=== PATIENT | female | born 1990 | race Caucasian/White ===

== ENCOUNTER 2024-01-14 12:50 | Outpatient (CLI) | payer OTHER, SELFPAY ==
--- NOTE | 2024-01-14 13:00 | CRLHL7_ITS ---
For Patients: As a result of the Cures Act, medical imaging exams and procedure reports are released immediately into your electronic medical record. You may view this report before your referring provider. If you have questions, please contact your health care provider. INDICATION: First trimester scan, establish dates. COMPARISON: None. TECHNIQUE: Real-time vivas-scale imaging of the pelvis was performed. FINDINGS: Sonographic imaging demonstrates a single living intrauterine gestation. The embryo demonstrates a regular cardiac rate measuring 176 beats per minute. The embryo`s crown-rump length measurement of 1.9 cm corresponds to a gestational age of 8 weeks 3 days with a sonographic due date of 08/22/2024. There is a normal-appearing yolk sac. There are no gross abnormalities noted within the embryo at this early state of development. The gestational sac has a normal appearance. There is no evidence of a perigestational hemorrhage. The amount of fluid within the sac appears appropriate for gestational age. The cervix is closed. The myometrium appears normal. The ovaries are of normal size. Corpus luteal cyst right ovary. There are no suspicious fluid collections noted in the cul-de-sac. IMPRESSION: Normal first trimester OB ultrasound exam. Gestational age calculated at 8 weeks 3 days with a sonographic due date of 08/22/2024. Dictated by Lenin Newton MD @ 01/14/2024 4:16:28 PM (Electronically Signed)
== END 2024-01-14 12:51 | disposition home or self-care (01) ==
LOC: US 12:50
PROVIDERS: Visit Provider Physician Assistant
DX: Z34.91 Encounter for supervision of normal pregnancy, unspecified, first trimester (principal); Z3A.08 8 weeks gestation of pregnancy
CPT/HCPCS: 76817; 86592; 86703; 86704; 86706; 86762; 86787; 86803; 86850; 86900; 86901; 87086; 87340; 87491; 87591

== ENCOUNTER 2024-04-05 12:04 | Outpatient (CLI) | payer OTHER, SELFPAY ==
--- NOTE | 2024-04-05 12:15 | CRLHL7_ITS ---
For Patients: As a result of the Century Cures Act, medical imaging exams and procedure reports are released immediately into your electronic medical record. You may view this report before your referring provider. If you have questions, please contact your health care provider. INDICATION: Evaluate anatomy. COMPARISON: 02/16/2024 TECHNIQUE: Real time vivas scale imaging of the fetus was performed as well as color Doppler analysis of the umbilical vessels. FINDINGS: Sonographic imaging demonstrates a single living intrauterine gestation. Fetus demonstrates a regular cardiac rate of 163 beats per minute. Fetus has a breech position. The placenta lies anteriorly without evidence of placenta previa. Edge of the placenta is located 2.2 cm from the internal cervical os, confirmed with transvaginal imaging. Amniotic fluid volume appears normal. Single deepest vertical pocket: 2.9 cm. The cervix is closed and measures 4.1 cm in length. The composite ultrasound gestational age is calculated at 20 weeks 0 days with an estimated sonographic due date of 08/23/2024. The estimated weight is 319 grams which lies at the 56th %. The following biometric measurements were obtained: Biparietal diameter: 4.5 cm/19 weeks 4 days 45th% Head circumference: 17.4 cm/20 weeks 0 days 54th% Abdominal circumference: 14.9 cm/20 weeks 1 day 61st% Femur length: 3.1 cm/19 weeks 4 days 36th% The HC/AC ratio measures: 1.17 range (1.08-1.25) On anatomic survey, there is a normal appearance of the cerebral ventricles, cavum septi pellucidi, cisterna magna and cerebellum. The nose, lips, and facial profile appear normal. The cervical, thoracic and lumbar spine are well visualized and appear normal. There is a normal four-chamber heart view and the left and right ventricular outflow tracts appear normal. The diaphragm and stomach appear normal. The kidneys and bladder also appear normal. There is a normal three-vessel cord and cord insertion site. The four extremities appear normal. IMPRESSION: Normal OB ultrasound exam with concordance of clinical and sonographic dating. No intrinsic abnormalities noted on anatomic survey. Dictated by Lenin Newton MD @ 04/06/2024 12:21:41 PM (Electronically Signed)
== END 2024-04-05 12:05 | disposition home or self-care (01) ==
LOC: US 12:04
PROVIDERS: Visit Provider Advanced Practice Midwife
DX: Z34.92 Encounter for supervision of normal pregnancy, unspecified, second trimester (principal); Z3A.20 20 weeks gestation of pregnancy
CPT/HCPCS: 76805

== ENCOUNTER 2024-05-31 11:00 | Outpatient (CLI) | payer OTHER, SELFPAY | END 2024-05-31 11:01 | disposition home or self-care (01) | LOC: NFLDREF 06-03 03:50 | PROVIDERS: PCP Nurse Practitioner Family; Visit Provider Advanced Practice Midwife | DX: O09.522 Supervision of elderly multigravida, second trimester (principal); Z3A.27 27 weeks gestation of pregnancy | CPT/HCPCS: 86592 ==

== ENCOUNTER 2024-06-21 10:07 | Outpatient (CLI) | payer OTHER, SELFPAY | END 2024-06-21 10:08 | disposition home or self-care (01) | LOC: US 10:07 | PROVIDERS: PCP Nurse Practitioner Family; Visit Provider Advanced Practice Midwife | DX: O44.40 Low lying placenta NOS or without hemorrhage, unspecified trimester (principal) | CPT/HCPCS: 76816 ==

== ENCOUNTER 2024-07-21 18:28 | Outpatient (CLI) | payer OTHER, SELFPAY ==
[2024-07-21] VITALS (15 sets, daily range): BP systolic 128–152; BP diastolic 60–92; PULSE 81–98
[2024-07-21] MEDS: ACETAMINOPHEN 500 MG TABLET 1000 MG PO (20:35)
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
[2024-07-21] MEDS: METOCLOPRAMIDE 10 MG TABLET PO (21:03)
[2024-07-21 21:07] LABS: Alanine Aminotransferase* 16 U/L (4-35); Aspartate Amino Transferase* 33 U/L (12-35); Blood Urea Nitrogen* 5 mg/dL (5-24); Creatinine* 0.4 mg/dL (0.5-1.5); Estimated Glomerular Filt Rate 132 ml/min; Uric Acid* 3.8 mg/dL (2.2-8.4)
[2024-07-21 21:07] LABS: Total Protein Urine 13 mg/dL
[2024-07-21 21:08] LABS: Creatinine Urine 56.2 mg/dL; Protein Creatinine Ratio Urine 0.23 (0-0.19)
[2024-07-21 21:10] LABS: Hematocrit 34.1 % (33.0-51.0); Hemoglobin* 11.1 gm/dL (12.0-16.0); Mean Corpuscular HGB Conc 33 gm/dL (32-36); Mean Corpuscular Hemoglobin 27 pg (26-34); Mean Corpuscular Volume 84 fL (80-100); Platelet Count* 331 K/uL (140-440); Red Blood Count 4.07 m/uL (4.00-5.20); White Blood Count* 12.09 K/uL (4.50-11.00)
[2024-07-21 21:18] LABS: Slide Review Reflex No
[2024-07-21 22:17] LABS: Amnisure Rom* Negative
--- NOTE | 2024-07-21 23:03 | PC.OBNST ---
NST Note NST Note Start: 07/21/24 18:36 Freq: ONCE Status: Active Protocol: Document 07/21/24 23:00 RRP (Rec: 07/21/24 23:01 RRP [id number]) NST Note 4 Para (# of births) 1 EDC [birth year] Gestational Age In Weeks & Days -1530 Weeks & -2 Days High Risk Factors High Blood Pressure - Gestational Patient Presented with Complaint(s) of Nausea and vomiting,Headache Other Complaints dizzy, light headed and thought ROM while here Reactive Yes Appropriate for Gestational Age Yes ANGÉLICA Walker Date 07/21/24 Reactive Yes Appropriate for Gestational Age Yes ANGÉLICA Lafleur CNM Date 07/21/24 OB NST charge Yes Complete NST Note via Write Note Yes The provider's electronic signature indicates the NST is reactive/appropriate for gestational age. *Note to provider: If an addendum is required, open the patient's chart and click on the note under the Nurse/Allied Health tab.
[2024-07-22 10:47] LABS: Fibrinogen* 480 mg/dL (200-450); Partial Thromboplastin Time* 27 Seconds (23-33)
[2024-07-22 10:58] LABS: INR 0.96 (0.91-1.10)
== END 2024-07-21 23:00 | disposition home or self-care (01) ==
LOC: OB OUT 18:29 → OB 18:29
PROVIDERS: PCP Nurse Practitioner Family; Visit Provider Advanced Practice Midwife
DX: O13.3 Gestational [pregnancy-induced] hypertension without significant proteinuria, third trimester (principal); Z3A.35 35 weeks gestation of pregnancy
CPT/HCPCS: 36415; 59025; 82565; 82570; 84112; 84156; 84450; 84460; 84520; 84550; 85027; 85384; 85610; 85730; G0463; A9270

== ENCOUNTER 2024-07-26 13:51 | Outpatient (CLI) | payer OTHER, SELFPAY ==
--- NOTE | 2024-07-26 14:00 | CRLHL7_ITS ---
For Patients: As a result of the Century Cures Act, medical imaging exams and procedure reports are released immediately into your electronic medical record. You may view this report before your referring provider. If you have questions, please contact your health care provider. OBSTETRICAL ULTRASOUND ??? BIOPHYSICAL PROFILE, 07/26/2024 INDICATION: Gestational diabetes mellitus. Biophysical profile and growth. CLINICAL HISTORY: TRACE by LMP: 08/25/2024 Gestational Age: 35 weeks 5 days COMPARISON: 06/21/2024, 04/05/2024 TECHNIQUE: Real-time vivas-scale imaging of the fetus was performed transabdominal. FINDINGS: Fetus: Single Cervix: Not visualized positioning: Vertex Amniotic fluid: 6.2 cm SDP BIOPHYSICAL PROFILE: Gross body movements: 2 tone: 2 Respiratory activity: 2 Amniotic fluid SDP: 2 Total score: 8 Placenta technique: Transabdominal Placenta position: Anterior heart rate: 143 bpm BIOMETRY: BPD: 8.9 cm, 35 weeks 6 days, 59.4% HC: 33.3 cm, 38 weeks 0 days, 73.6% AC: 33.8 cm, 37 weeks 5 days, 95.8% FL: 6.6 cm, 34 weeks 1 day, 11.2% FL/AC Ratio: 19.65% HC/AC ratio: 0.98 EFW: 2998 grams; 6 lbs. 10 oz. age by this ultrasound: 36 weeks 3 days TRACE by this ultrasound: 08/20/2024 Percentile by TRACE: 76.0% IMPRESSION: 1. Sonographic gestational age 36 weeks 3 days and sonographic due date 08/20/2024.. Sonographic age is 5 days ahead of the clinical age. 2. Estimated weight is 76th percentile. Abdominal circumference is 96th percentile. 3. Normal biophysical profile score of 11/25. LENIN SAUNDERS M.D. Diagnostic Radiologist [email or web address] Transcribed: 4:[address]/Dictated by: Lenin Saunders MD @ 07/26/2024 2:54:00 PM (Electronically Signed)
== END 2024-07-26 13:52 | disposition home or self-care (01) ==
LOC: US 13:51
PROVIDERS: PCP Nurse Practitioner Family; Visit Provider Advanced Practice Midwife
DX: O24.419 Gestational diabetes mellitus in pregnancy, unspecified control (principal); Z3A.35 35 weeks gestation of pregnancy
CPT/HCPCS: 76816; 76819

== ENCOUNTER 2024-07-26 15:43 | Outpatient (CLI) | payer OTHER, SELFPAY | END 2024-07-26 15:44 | disposition home or self-care (01) | LOC: NFLDREF 08-01 02:24 | PROVIDERS: PCP Nurse Practitioner Family; Referring Provider Nurse Practitioner Family; Visit Provider Advanced Practice Midwife | DX: Z34.93 Encounter for supervision of normal pregnancy, unspecified, third trimester (principal); Z3A.35 35 weeks gestation of pregnancy | CPT/HCPCS: 87081; 87653 ==

== ENCOUNTER 2024-07-27 09:30 | Outpatient (RCR) | payer OTHER, SELFPAY | END 2024-11-24 23:59 | disposition home or self-care (01) | PROVIDERS: PCP Nurse Practitioner Family; Visit Provider Advanced Practice Midwife | DX: N81.89 Other female genital prolapse (principal); Z51.89 Encounter for other specified aftercare | CPT/HCPCS: 97112; 97140; 97163; 97530; 97535 ==

== ENCOUNTER 2024-07-29 10:05 | Outpatient (CLI) | payer OTHER, SELFPAY | END 2024-07-29 10:06 | disposition home or self-care (01) | LOC: NFLDREF 08-02 01:54 | PROVIDERS: PCP Nurse Practitioner Family; Referring Provider Nurse Practitioner Family; Visit Provider Advanced Practice Midwife | DX: O13.3 Gestational [pregnancy-induced] hypertension without significant proteinuria, third trimester (principal); Z3A.36 36 weeks gestation of pregnancy | CPT/HCPCS: 82565; 82570; 84156; 84450; 84460 ==

== ENCOUNTER 2024-08-02 12:51 | Outpatient (CLI) | payer OTHER, SELFPAY ==
--- NOTE | 2024-08-02 13:00 | CRLHL7_ITS ---
For Patients: As a result of the Cures Act, medical imaging exams and procedure reports are released immediately into your electronic medical record. You may view this report before your referring provider. If you have questions, please contact your health care provider. OB ULTRASOUND TRACE by LMP or US: 08/25/2024. GA: 36 w, 5 d. Single. Comparison: Ultrasound 07/26/2024, 06/21/2024. INDICATION: Gestational hypertension. TECHNIQUE: Real time grayscale imaging of the fetus was performed. Transabdominal. CERVIX: Not visualized. POSITIONING: Vertex. AMNIOTIC FLUID: 7.4 cm. SDP (N: greater than 2 x 1 cm) BIOPHYSICAL PROFILE: 2: Gross body movements 2: tone 2: Respiratory activity 2: Amniotic fluid SDP (N: greater than 2 x 1 cm) 8/8: Total score PLACENTA: Technique: Transabdominal. PLACENTA POSITION: Anterior. DOPPLER: heart rate: 159 bpm. IMPRESSION: Normal biophysical profile score 8/8. Lenin Newton M.D. Diagnostic Radiologist [email or web address] ESA/claudio jsunil/Dictated by: Lenin Newton MD @ 08/02/2024 3:25:00 PM (Electronically Signed)
== END 2024-08-02 12:52 | disposition home or self-care (01) ==
LOC: US 12:51
PROVIDERS: PCP Nurse Practitioner Family; Visit Provider Advanced Practice Midwife
DX: O13.3 Gestational [pregnancy-induced] hypertension without significant proteinuria, third trimester (principal); Z3A.36 36 weeks gestation of pregnancy
CPT/HCPCS: 76819

== ENCOUNTER 2024-08-03 16:08 | Inpatient (IN) | payer OTHER, SELFPAY ==
[2024-08-03] VITALS (8 sets, daily range): BP systolic 131–143; BP diastolic 62–87; PULSE 76–101; RESP 16–18; TEMP 36.6–36.8; O2SAT 99; BMI 27.6
[2024-08-03 17:52] LABS: Basophils Absolute Auto 0.04 K/uL (0.00-0.30); Basophils Percent Auto 0.4 % (0.0-3.0); Eosinophils Absolute Auto 0.07 K/uL (0.00-0.50); Eosinophils Percent Auto 0.7 % (0.0-7.0); Hemoglobin* 11.7 gm/dL (12.0-16.0); Immature Granulocytes Abs Auto 0.04 K/uL (0.00-0.30); Immature Granulocytes Pct Auto 0.4 %; Lymphocytes Absolute Auto 2.11 K/uL (0.90-2.90); Lymphocytes Percent Auto 20.8 % (20-44); Mean Corpuscular HGB Conc 33 gm/dL (32-36); Mean Corpuscular Hemoglobin 27 pg (26-34); Mean Corpuscular Volume 83 fL (80-100); Monocytes Percent Auto 7.4 % (0.0-11.0); Neutrophils Absolute Auto 7.11 K/uL (1.7-7.0); Neutrophils Percent Auto 70.3 % (42.0-72.0); Platelet Count* 353 K/uL (140-440); Red Blood Count 4.32 m/uL (4.00-5.20); White Blood Count* 10.12 K/uL (4.50-11.00)
[2024-08-03 17:53] LABS: Slide Review Reflex No
[2024-08-03 18:05] LABS: Alanine Aminotransferase* 20 U/L (4-35); Aspartate Amino Transferase* 35 U/L (12-35); Blood Urea Nitrogen* 6 mg/dL (5-24); Creatinine* 0.5 mg/dL (0.5-1.5); Est. Creatinine Clearance* 181.23; Estimated Glomerular Filt Rate 125 ml/min
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
[2024-08-03] MEDS: LACTATED RINGERS 1000 ML 1,000 ML 75 ML IV (18:56)
[2024-08-03] MEDS: OXYTOCIN 30 unit/500 ML in NS 30 UNIT/500 ML BAG IVPB (18:56)
[2024-08-04] VITALS (27 sets, daily range): BP systolic 108–147; BP diastolic 63–95; PULSE 74–103; RESP 16–18; TEMP 36.4–36.7
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
[2024-08-04] MEDS: LACTATED RINGERS 1000 ML 1,000 ML 75 ML IV ×2 (09:36→22:41)
[2024-08-04] MEDS: VALACYCLOVIR HCL 500 MG TABLET PO ×2 (10:06→21:22)
--- NOTE | 2024-08-04 13:13 | PM.OBPNL ---
Subjective Date Seen: 08/04/24 Narrative: Aline is a 33 yo at 37 0/7 weeks gestation that is admitted for IOL for pre-eclampsia without severe features for a TOLAC. Her labor was started last evening with IV pitocin with minimal progress this morning. Dr. Morejon was consulted for cook placement due to no change from morning exam. She is coping well and starting to feel more cramping and contractions but reports they are very tolerable. She is supported in labor by her . Objective Exam: Objective: Constitutional: Alert and oriented x3, mild distress, coping well Vital signs stable, see nurse documentation Abdomen: gravid, contractions palpate mild with contractions and soft between Cervix: 0.5 cm/thick/vertex NST: 140 bpm/moderate variability/15x15 accelerations/no decelerations/contractions every 4 minutes Vital Signs: Last Vital Signs Temp 97.6 F 08/04/24 12:54 Pulse 78 08/04/24 12:54 Resp 18 08/04/24 06:19 BP 135/83 08/04/24 12:54 Pulse Ox 99 08/03/24 20:05 Contractions Monitor mode: External Contraction pattern: Regular Contraction intensity: Mild Pitocin Rate (mU/min): 12 Plan Plan: Plan: ASSESSMENT:?? 35 at 37.0 weeks gestation?? complicated by:?AMA, preeclampsia, complex regional pain syndrome, spinal cord stimulator status Labor type: Induced, not currently in labor?? Category 1 FHR pattern.??? GBS: negative ?? PLAN:?? 1. Routine intrapartum cares as ordered. Unchanged cervix. Cook placed by Dr. Morejon. Reduced pitocin to 10 and will continue to increase 1 mu per hour with a max of 30 mu. This was reviewed with Dr. Morejon who agrees with this recommendation. 2. Monitoring per policy, continuous 3. Planning use of nitrous oxide and intrathecal injections by anesthesia for pain management when needed.? 4. Patient encouraged to reposition and ambulate to promote physiologic labor and .?? 5. Consulted Dr. Morejon, see her note for consult and cook placement. She is aware of current labor plan. 6. Anticipate ?
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
[2024-08-05] VITALS (35 sets, daily range): BP systolic 127–144; BP diastolic 69–92; PULSE 62–88; RESP 16–18; TEMP 36.4–37.2; O2SAT 93–99
--- NOTE | 2024-08-05 01:55 | P.OBPN_ITS ---
Subjective Date Seen: 08/05/24 Narrative: Aline is a 33 yo at 37 1/7 weeks gestation that was admitted on Thursday night for IOL for pre-eclampsia without severe features. Her labor is complicated by desire to TOLAC. Her cervical exam on admission was 0.5/thick/high. Due to history of section, plan was made to use IV pitocin. After 12 hours, no change was noted and attempted to place a cook catheter. This was unsuccessful. After a few hours, a second attempt was made by Dr. Morejon. Pitocin augmentation was continue with cook catheter in place. At 12 hours post placement, cook was removed. SVE after removal was /-2-3. Options were discussed with patient to attempt AROM vs continued pitocin augmentation. We also reviewed option of repeat c/s if she desired. She requested to review the options with her and support/friend. After some time, she called to discuss and had requested a repeat c/s and elects to stop IOL process at this time. Objective Exam: Objective: Constitutional: Alert and oriented x3, mild distress, coping well Vital signs stable, see nurse documentation Abdomen: gravid, contractions palpate mild with contractions and soft between Cervix: 2 cm/30%/-3 station/vertex NST: 130 bpm/moderate variability/15x15 accelerations/no decelerations/contractions every 3-4 minutes Vital Signs: Last Vital Signs Temp 98.1 F 08/05/24 01:06 Pulse 76 08/05/24 01:05 Resp 18 08/05/24 01:06 BP 132/77 08/05/24 01:05 Pulse Ox 99 08/03/24 20:05 Contractions Monitor mode: External Contraction pattern: Regular Contraction intensity: Mild Pitocin Rate (mU/min): 12 Plan Plan: ASSESSMENT: 33yo at 37.1 weeks gestation?? complicated by:?AMA, preeclampsia, complex regional pain syndrome, spinal cord stimulator status Labor type: Induced, not currently in labor?? Category 1 FHR pattern.??? GBS: negative ?? PLAN:?? 1. Routine intrapartum cares as ordered. Some change with cook catheter. Discussed option of AROM, continued pitocin increase, and/or repeat c/s. She has elected repeat c/s. 2. Monitoring per policy, continuous 3. Planning use of nitrous oxide and intrathecal injections by anesthesia for pain management when needed.? 4. Patient encouraged to reposition and ambulate to promote physiologic labor and .?? 5. Consulted Dr. Morejon about patient request for repeat c/s. We discussed waiting until morning due to patients placement of spinal cord stimulator. tracing is reassuring and blood pressures are upper normotensive to low mild range. She agrees with this plan. Nuclear Medicine Specialist notified. L&D Charge aware and will assist in notifying Anesthesia in am and making plan for day. Dr. Olimpia velasquez will notify Dr. Mercado. 6. Anticipate .?
[2024-08-05] MEDS: AZITHROMYCIN 500 MG in 0.9 % SODIUM CHLORIDE 250 ml 250 ML 255 MG IVPB (06:46)
[2024-08-05 06:55] LABS: Hemoglobin* 11.5 gm/dL (12.0-16.0)
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
[2024-08-05] MEDS: LACTATED RINGERS 1000 ML 1,000 ML 100 ML IV (08:01)
[2024-08-05] MEDS: KETOROLAC 30 MG/ML inj IVP ×3 (08:45→21:05)
--- NOTE | 2024-08-05 08:51 | PM.OBPRCCS ---
Procedure Time Seen by Provider: 08:52 Date of procedure: 08/05/24 Pre-op diagnosis: Preeclampsia without severe features, trial of labor after , maternal request for repeat , AMA, chronic pain with history of R below the knee amputation, spinal nerve stimulator in place (off) Post-op diagnosis: same Procedure Done: Global Will [facility] bill your pro fee for this procedure?: Yes Blood Loss Measurement Type: QBL (260) IV fluids (mL): 1,900 Urine Output (mL): 260 Urine Output Comment: Clear, yellow Surgeon: Ace Mercado MD Anesthesia Type: General Findings: Liveborn female fetus Unremarkable uterus, bilateral fallopian tubes and ovaries Procedure Name: Repeat delivery Procedure Description: Patient was taken to the operating room with IV running. She received cefazolin in preoperative prophylaxis. Spinal anesthesia was administered at 0728. Kim catheter was inserted. She was prepped and draped in the usual sterile fashion. Anesthesia was tested and found found to be inadequate at about 0738. TAKE OUT WAITER/WAITRESS consulted Dr. Zavala, where we did a trial of Trendelenburg to see if we could her levels to rise. Unfortunately, at 0751 decision was made to convert to a general anesthetic as tested pain control was still in inadequate. Patient was able to speak with her partner briefly prior to proceeding. General anesthetic was induced. A low-transverse skin incision was made with a scalpel and carried through to the underlying layer of fascia with the scalpel. The subcutaneous fat was dissected off the underlying fascia with Bovie and blunt dissection. The fascia was nicked in the midline with a scalpel, and this incision was extended laterally with scissors. The rectus muscles were in the midline. Peritoneum was identified and entered bluntly. Bovie was used to widen this opening laterally. Cristian O retractor was inserted and tightened down, providing excellent visualization of the lower uterine segment. The bladder reflection was found to be advanced along the lower uterine segment. A bladder flap was created with a combination of sharp and blunt dissection. Low-transverse uterine incision was made with a scalpel. Incision was widened bluntly, where disruption of the distal end of her anterior placenta was noted. The infant's head was grasped through the hysterotomy in direct OP position and elevated to the hysterotomy. The remainder of the body delivered without incident with the help of fundal pressure. No nuchal cord was noted. Cord was clamped and cut immediately due to placental disruption preventing delayed cord clamping. was handed off to attending nurses and Peds provider. The placenta was delivered with gentle traction on the cord. The uterus was cleaned of all clots and debris with the dry lap pad. Very boggy uterine tone was noted, likely consistent with labored and use of a general anesthetic. IV TXA and 0.25mg IM hemabate was administered. The hysterotomy was reapproximated with 0 Vicryl in a running, locked fashion. Second layer of the same suture was used in imbricating fashion to obtain hemostasis. Excellent uterine tone and hemostasis was noted. The adnexa were examined and noted to be normal in appearance. The cul-de-sac and gutters were cleansed with dampened laparotomy sponge, removing any further clots and debris. The Cristian O retractor was removed. The hysterotomy was reexamined and found to be hemostatic. The rectus muscles were examined and found to be hemostatic. The fascia was reapproximated with 0 Vicryl in a running fashion. Subcutaneous fat was irrigated and Bovie used on oozing vessels. The subcutaneous fat did not require closure. The skin was closed with a subcuticular stitch of 3-0 monocryl. Surgical glue was applied above this. Patient tolerated procedure well was taken to recovery area in stable condition. Surgical debrief was completed. details: - Liveborn female fetus - weight: Pending at time of documentation - APGARs were 8 and 9 at 1 and 5 minutes respectively Complications: None Pathology: specimen obtained, sent to pathology Surgery Debrief Performed: Yes Condition: stable Disposition: floor
--- NOTE | 2024-08-05 08:55 | P.ANES_ITS ---
Anesthesia Charges Start Date/Time Anesthesia Start Date: 08/05/24 Anesthesia Start Time: 07:16 Stop Date/Time Anesthesia Stop Date: 08/05/24 Anesthesia Stop Time: 08:55 Summary Emergency: JOSE ALFREDO Coding CPT Codes CPT Codes: ANESTH CS DELIVERY - 19035 ([id number]) P3 - PATIENT W/SEVERE SYS DISEASE, QK - DEMAND PLANNING MANAGER 2-4 CNCRNT ANES PROC, QX - CHANNEL MARKETING COORDINATOR SVC W/ MD MED DIRECTION Additional Codes: Summary - Emergency: JOSE ALFREDO ([id number])
--- NOTE | 2024-08-05 08:55 | W.ANESCHARGE ---
Anesthesia Charges Start Date/Time Anesthesia Start Date: 08/05/24 Anesthesia Start Time: 07:16 Stop Date/Time Anesthesia Stop Date: 08/05/24 Anesthesia Stop Time: 08:55 Summary Emergency: JOSE ALFREDO Coding CPT Codes CPT Codes: ANESTH CS DELIVERY - 78456 ([id number]) P3 - PATIENT W/SEVERE SYS DISEASE, QK - OUTPATIENT SURGERY RN 2-4 CNCRNT ANES PROC, QX - AUTO SERVICE WRITER SVC W/ MD MED DIRECTION Additional Codes: Summary - Emergency: JOSE ALFREDO ([id number])
--- NOTE | 2024-08-05 09:00 | P.NB_ITS ---
Nerve Block Nerve Block Time Seen by Provider: 08:45 Date Seen: 08/05/24 Type of block requested by surgeon for post-operative analgesia: TAP Side: bilateral Time out performed: Yes Verification of patient name: Yes Verification of date of : Yes Site marking: site marked Name of person performing procedure: Russel Shayy Continuous monitoring Was continuous monitoring of O2 sat, B/P, cardiac catheterization technician, recorded every 15 minutes?: Yes Procedure Checklist: sterile prep, needles and gloves Ultrasound guided. Images saved: Yes Medications given in 5ml increments after negative aspiration: Marcaine %: 0.25 mL: 30 Needle gauge: 21 and Exparel mL: 10 Needle gauge: 21 Patient tolerated procedure well: Yes Additional comments: Injected in 5mL increments after negative aspiration Block Charges Block Charge (with Pro Fee): TAP Bilateral Use of Ultrasound Machine for Block: Yes- US Guidance/pain block
--- NOTE | 2024-08-05 09:00 | P.ANES_ITS ---
Anesthesia Charges Start Date/Time Anesthesia Start Date: 08/05/24 Anesthesia Start Time: 07:16 Stop Date/Time Anesthesia Stop Date: 08/05/24 Anesthesia Stop Time: 08:55 Summary Emergency: WET PROCESS ASSISTANT HEAD MILLER Coding CPT Codes CPT Codes: ANESTH CS DELIVERY - 88315 ([id number]) P3 - PATIENT W/SEVERE SYS DISEASE, QK - MIMEOGRAPHER 2-4 CNCRNT ANES PROC, P6 - BRAIN- PT ORGANS REMOVED Additional Codes: Summary - Emergency: WET PROCESS ASSISTANT HEAD MILLER ([id number])
--- NOTE | 2024-08-05 09:00 | W.ANESCHARGE ---
Anesthesia Charges Start Date/Time Anesthesia Start Date: 08/05/24 Anesthesia Start Time: 07:16 Stop Date/Time Anesthesia Stop Date: 08/05/24 Anesthesia Stop Time: 08:55 Summary Emergency: SENIOR ACCOUNTING MANAGER Coding CPT Codes CPT Codes: ANESTH CS DELIVERY - 18141 ([id number]) P3 - PATIENT W/SEVERE SYS DISEASE, QK - SEAMER ELASTIC BAND 2-4 CNCRNT ANES PROC, P6 - BRAIN- PT ORGANS REMOVED Additional Codes: Summary - Emergency: SENIOR ACCOUNTING MANAGER ([id number])
[2024-08-05 17:35] LABS: Rapid Plasma Reagin (RPR) Non Reactive (Non Reactive)
[2024-08-06 00:06] VITALS: BP 135/79; PULSE 76; RESP 16; TEMP 36.8; O2SAT 97
[2024-08-06] MEDS: KETOROLAC 30 MG/ML inj IVP ×3 (03:08→15:48)
[2024-08-06 04:30] VITALS: BP 122/71; PULSE 75; RESP 16; TEMP 37.1; O2SAT 97
[2024-08-06 07:00] LABS: Hemoglobin* 9.4 gm/dL (12.0-16.0)
[2024-08-06 08:35] VITALS: BP 127/78; PULSE 81; RESP 16; TEMP 36.7; O2SAT 99
[2024-08-06] MEDS: DOCUSATE SODIUM 100 MG CAPSULE PO (08:48)
[2024-08-06] MEDS: SODIUM CHLORIDE 0.9 % (FLUSH) 10 ML SYRINGE IVF ×2 (08:49→15:49)
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
[2024-08-06 12:30] VITALS: BP 131/84; PULSE 71; RESP 16; TEMP 36.7; O2SAT 98
[2024-08-06 15:49] VITALS: BP 138/87; PULSE 79; RESP 16; TEMP 36.7; O2SAT 98
[2024-08-06 16:17] LABS: Basophils Absolute Auto 0.05 K/uL (0.00-0.30); Basophils Percent Auto 0.5 % (0.0-3.0); Eosinophils Absolute Auto 0.16 K/uL (0.00-0.50); Eosinophils Percent Auto 1.5 % (0.0-7.0); Hematocrit 31.1 % (33.0-51.0); Hemoglobin* 10.1 gm/dL (12.0-16.0); Immature Granulocytes Abs Auto 0.06 K/uL (0.00-0.30); Immature Granulocytes Pct Auto 0.6 %; Lymphocytes Absolute Auto 2.42 K/uL (0.90-2.90); Lymphocytes Percent Auto 22.8 % (20-44); Mean Corpuscular HGB Conc 33 gm/dL (32-36); Mean Corpuscular Hemoglobin 27 pg (26-34); Mean Corpuscular Volume 85 fL (80-100); Neutrophils Absolute Auto 7.08 K/uL (1.7-7.0); Neutrophils Percent Auto 66.6 % (42.0-72.0); Platelet Count* 313 K/uL (140-440); RDW Coefficient of Variation % 13.3 % (11.5-15.5); Red Blood Count 3.68 m/uL (4.00-5.20); White Blood Count* 10.62 K/uL (4.50-11.00)
[2024-08-06 19:09] LABS: Slide Review Reflex No
[2024-08-06 20:03] VITALS: BP 144/86; PULSE 86; RESP 16; TEMP 36.6; O2SAT 98
[2024-08-07 00:22] VITALS: BP 136/81; PULSE 86; RESP 16; TEMP 36.6; O2SAT 98
[2024-08-07] MEDS: ACETAMINOPHEN 500 MG TABLET 1000 MG PO (00:26)
[2024-08-07 03:59] VITALS: BP 147/86; PULSE 76; RESP 16; TEMP 36.5; O2SAT 99
[2024-08-07] MEDS: IBUPROFEN 600 MG TABLET PO ×2 (04:13→10:28)
[2024-08-07 07:19] VITALS: BP 134/87; PULSE 72; RESP 16; TEMP 36.6; O2SAT 98
--- NOTE | 2024-08-07 08:51 | P.DS_ITS ---
DS: Providers Provider Time Seen by Provider: 08:51 Date Seen: 08/07/24 Date of admission: 08/03/24 16:08 Primary care physician: Tabatha Srivastava APRN, [employer] TECHNICAL OFFICER Admitting Clinician: Ciarra Lozoya CNM Consults: 08/04/24 16:41 Consult to Physician [CONS] Routine Comment: Consulting Provider: Colleen Morejon Has provider been notified: Yes Attending Physician on discharge: Colleen Morejon MD Date of Discharge: 08/07/24 DS: Diagnosis Discharge Diagnosis (1) S/P repeat low transverse : Status: Acute Problem details: Girl, Rosalina, failed IOL at 2cm dilation. (2) Anemia associated with acute blood loss: Status: Acute (3) Failed induction of labor, delivered: Status: Acute Exam Narrative: Exam Narrative: General: Pleasant, , well groomed woman in no acute distress. Vital signs: Included in her electronic medical record. Heart: Regular rate and rhythm without gallop, rub or murmur. Chest: Clear to auscultation bilaterally. Abdomen: Soft, nontender and nondistended with normal bowel sounds throughout. Fundus firm at 2 cm below the umbilicus in the midline. Incision: Clean, dry and intact with sutures and skin adhesive gel. 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 Const: Vital Signs, click to edit/add: Vital Signs - 24 hr 08/06/24 12:30 08/06/24 15:49 08/06/24 20:03 Temperature 98.1 F 98.1 F 97.9 F Pulse Rate [Pulse Oximeter] 71 79 86 Respiratory Rate 16 16 16 Blood Pressure [Ri ght Arm] 131/84 138/87 144/86 H Pulse Oximetry 98 98 98 Oxygen Delivery Me thod Room Air Room Air Room Air 08/07/24 00:22 08/07/24 03:59 08/07/24 07:19 Temperature 97.9 F 97.7 F 97.8 F Pulse Rate [Pulse Oximeter] 86 76 72 Respiratory Rate 16 16 16 Blood Pressure [Ri ght Arm] 136/81 147/86 H 134/87 Pulse Oximetry 98 99 98 Oxygen Delivery Me thod Room Air Room Air Room Air OB - DS: Summary Hospital Course Hospital Course: Aline is a 33 year old G 4 P 2021 at 37 weeks gestation that was admitted to the [facility] on 08/03/24 for induction of labor due to preeclampsia without severe features. She had an uncomplicated delivery. She delivered a viable female infant. She is breast feeding. the patient has done well. She would like to be discharged home today. Patient's were reviewed. Peripartum Data delivery method: Repeat Section Procedures: Procedures Operation Date: 08/05/24 07:15 Actual Procedure Side Surgeon p REPEAT Section DELIVERY Lanette Mercado MD [place] Inf[facility] Gender: Female Status at Discharge Functional status at discharge: independent ambulation Time Spent with Patient Time attestation: Total time spent providing and/or coordinating discharge services: Time spent: Less than 30 minutes Discharge Plan Discharge Disposition: Home, Self-Care Date of Admission: 08/03/24 16:08 Attending Provider on Discharge: Colleen Morejon Consulting Providers: Vianey Groves Nicole A Primary Care Provider: Tabatha Srivastava Condition: Improved Anticipated Discharge Date/Time: 08/07/24 11:30 Discharge Medications: New docusate sodium 100 mg Capsule 100 mg PO DAILY PRN (Reason: constipation) Qty: 100 0RF ferrous sulfate 325 mg (65 mg iron) Tablet 325 mg PO Q48H Qty: 100 0RF ibuprofen 600 mg Tablet 600 mg PO Q6H PRN (Reason: Pain) Qty: 30 0RF oxycodone 5 mg Tablet 5 mg PO 2XW PRN (Reason: Pain) Qty: 21 0RF Continued cholecalciferol (vitamin D3) 125 mcg/0.5 mL (5K unit/0.5mL) drops 75 mcg PO QDAY famotidine [Pepcid] 20 mg tablet 20 mg PO QDAY DHA 200 mg capsule 200 mg PO DAILY multivitamin Tablet 1 tab PO QAM cyanocobalamin-liver extract Tablet 1 tab PO DAILY calcium carbonate-vitamin D3 [Liquid Calcium with Vitamin D] 600 mg-5 mcg (200 unit) capsule 1 cap PO DAILY Discontinued valacyclovir 500 mg tablet 500 mg PO BID Qty: 60 0RF Rx Instructions: Start taking at 36 weeks until delivery metoclopramide HCl [Reglan] 10 mg tablet 10 mg PO Q6H PRN (Reason: headache) Qty: 30 2RF Discharge Orders: Discharge Order (Routine); Ordered 08/07/24 Ordered By: Colleen Morejon Patient Education: Preeclampsia and Eclampsia After Delivery (GEN), (DC) Additional Instructions: ACTIVITY RESTRICTIONS: * Nothing vaginally for 6 weeks: no tampons/intercourse * No driving while taking narcotic pain medication during the day. 1-2 weeks. * Lifting restriction: Maximum of 20 pounds for 6 weeks. * High impact or core exercises: 6 weeks. * Submerge the incision in water (bath/pool/rich): 2 weeks. * Off of work/school for a minimum of 8 weeks NO RESTRICTIONS for: * Walking * Going up/down stairs * Showering * Being a passenger in a motor vehicle Symptoms to report to doctor: -Bleeding that saturates more than one pad per hour ?-Passing clots larger than the size of a golf ball ?-Pain not relieved by prescribed medication ?-Fever above 100.4 degrees Fahrenheit ?-A foul vaginal odor ?-Difficulty in emotions, mood and functions ?-Thoughts of hurting yourself and/or ?-Painful, reddened area in your breast ?-Any drainage, redness or tenderness in your IV/epidural site ?-Severe headache that doesn't improve after taking medications ?-Changes in vision, including temporary loss of vision, blurred vision, and/or light sensitivity ?-Upper abdominal pain (usually under ribs on the right side) ?-Decrease in urination or painful, frequent urinating ?-Chest pain ?-Shortness of breath ?-Tenderness or pain with redness and/swelling in the calf(s) of your leg FOLLOW-UP: [facility]. [facility] for a Blood pressure check. 2. Check BP at home twice a day, contact the clinic at if SBP is >/= 140 (top number) or DBP >/= 90 (bottom number). 3. 2 week visit: BP check, incision check, review contraceptive options, screening for depression/anxiety. 4. A 6 week visit for an annual physical exam. FOR PAIN: 1. Alternate ibuprofen 600mg every 3 hours with ES Tylenol (acetaminophen) 1,000mg (2 tablets/capsules). Add oxycodone up to 3x/day if needed for pain. consultation services are available to all mothers and babies for the first year after delivery.? To make an appointment, please call [phone]. Activity Level: Other Discharge Diet: Regular Follow Up Appointments: Tabatha Srivastava APRN, D[employer] TECHNICAL OFFICER [Primary Care Provider] - [facility] [Outside] Forms: MyHealth Info Instructions
[2024-08-07] MEDS: DOCUSATE SODIUM 100 MG CAPSULE PO (10:28)
== END 2024-08-07 12:20 | disposition home or self-care (01) | DRG 787 ==
PROVIDERS: Obstetrics & Gynecology; Admitting Provider Advanced Practice Midwife; PCP Nurse Practitioner Family; Visit Provider Advanced Practice Midwife
PROC: 10D00Z1 Extraction of Products of Conception, Low, Open Approach (ICD-10-PCS; CPT 59514; principal; 2024-08-05 07:15)
DX: O14.04 Mild to moderate pre-eclampsia, complicating childbirth (principal); D62 Acute posthemorrhagic anemia; G90.50 Complex regional pain syndrome I, unspecified; O98.32 Other infections with a predominantly sexual mode of transmission complicating childbirth; Z3A.36 36 weeks gestation of pregnancy; Z37.0 Single live birth; O13.4 Gestational [pregnancy-induced] hypertension without significant proteinuria, complicating childbirth; Z96.82 Presence of neurostimulator; A60.09 Herpesviral infection of other urogenital tract; O99.344 Other mental disorders complicating childbirth; F41.9 Anxiety disorder, unspecified; F32.A Depression, unspecified; G89.18 Other acute postprocedural pain; O90.81 Anemia of the puerperium; O61.9 Failed induction of labor, unspecified; Z89.511 Acquired absence of right leg below knee
CPT/HCPCS: 01961; 36415; 59200; 64488; 76942; 82565; 84450; 84460; 84520; 85018; 85025; 85027; 86592; 86850; 86900; 86901; 88307; 99140; A4314; A9270; C1726; J0330; J0456; J0665; J0666; J1100; J1885; J2250; J2274; J2371; J2405; J2704; J3010; J7050; J7120

== ENCOUNTER 2024-10-19 14:23 | Outpatient (CLI) | payer OTHER, SELFPAY ==
--- NOTE | 2024-10-19 16:28 | W.PM.LAC.MC ---
Consult Note - Mom Date of Visit Date of visit: 10/19/24 Reason for consultation: Assistance Needed and Breast/Nipple Issue Visit Code: Visit Patient's Information Phone number: [phone] : 4 Para: 2 Allergies adhesive tape Adverse Reaction (Intermediate, Verified 09/15/24 11:08) Rash Mother's Medical History: Medical History (Updated 08/19/24 @ 14:17 by Nichole Saha CNM) Failed induction of labor, delivered ?O61.9 - Failed induction of labor, unspecified (ICD-10) PTSD (post-traumatic stress disorder) ?F43.10 - Post-traumatic stress disorder, unspecified (ICD-10) Borderline personality disorder ?F60.3 - Borderline personality disorder (ICD-10) History of miscarriage ?Z87.59 - Personal history of other complications of , childbirth and the puerperium (ICD-10) Delivery Information Delivery type: Primary C/S; Labored Gestational Age: 37 Gestational Weight For Age: AGA Weight: 2.96 kg Baby's Information Baby's Age at Visit: 2m 14d Baby's Provider or Clinic: [facility] Jaundice: No Past Experience Past Experience: Yes (pumped and bottled with her 1st) Current Frequency of Day Feedings: every 2-3 hours Frequency of Night Feedings: same Both Breasts: No Suck: strong Latch: mom thinks it's a good latch Length of Time: 10-15 min Goals: as long as it's going well Pumping Pumping: Yes Quantity Pumped: 3-4 oz a few times/day Supplementing EBM Supplement: Yes (can take a bottle, takes about 3 oz / bottle feeding) Formula Supplement: No Baby Elimination Number of Wet Diapers a Day: ea feeding Number of BM a Day: several/day Breast/Nipple Condition Breast Information: Breasts are symmetrical with rounded lower quadrants, intramammary distance is less than 1.5 inches. No erythema. Nipples are supple, everted prior to feeding. Nipples are erythematous, shiny and peeling bilaterally with demarcated edges; no erythema of breast tissue. Breast Shape: Round Engorgement: No Maternal Nipple Condition - Left: Common Nipple Maternal Nipple Condition - Right: Common Nipple Sore Nipples: Yes Interventions for Sore Nipples: Breast Shells (at night with lanolin) and Other (silverettes daytime) Baby Assessment Skin: Normal Tongue/frenulum: Normal/elastic Palate: Average Lips: Relaxed and Symmetrical Jaw Alignment: Symmetrical Mucosa: White patches (cheeks and inside lower lip) Onsite Observation Pre-Feed weight: 5.34 kg (average of 30 gm/day weight gain ) Position: Cross cradle Attachment/latch-on achieved: Easily Suck pattern: Suck burst and normal rest Swallow: Audible, consistent and Gulping (some smacking sounds at beginning of feeding during letdown that subside) Behavior following feed: Alert, content Post-Nursing Right Nipple: Creased/Beveled (very slight creasing) Assessments/Interventions Assessments/Interventions: Mom has had sore nipples since baby was born but it's been changing. First it was the normal soreness, then got a little better, then more painful. Mom was diagnosed with mastitis and put on antibiotics 09/23/24. She had a period of her nipples feeling much better for about 2 weeks. Then they started hurting again but it's a different kind of pain per mom. More of an itching, burning, prickly feeling now. Babe usually nurses from just one side; very slight creasing is noted after unlatching. Discussed tips with mom to get a deeper latch. Nipple pain more likely due to fungal infection that poor latch due to skin symptoms nichole Saha, automotive sales representative, present on unit and will send Rx for treatment of THRUSH Discuseed keeping nipples clean and dry to help heal infection; need to wash silverettes daily wash nipples once a day with soap to break any biofilm that may be present and allow medicine to work. treat with cream until nipples feel normal plus 1 week if getting worse, or no better within 5 days, call [facility] and consider fluconazole mom verbalized understanding of recommendations Education provided: Sore nipple treatment options Follow-Up Suggested follow up: Appointment as needed Time Spent Time spent with patient (min): 75 Meds Home Medications and Allergies Home Medications ?Medication ?Instructions ?Recorded ?Confirmed ?Type docosahexaenoic acid 200 mg 200 mg PO DAILY 01/14/24 09/15/24 History capsule ( DHA) multivitamin 1 tab PO QAM 01/14/24 09/15/24 History cholecalciferol (vitamin D3) 75 mcg PO QDAY 06/21/24 09/15/24 History docusate sodium 100 mg capsule 100 mg PO DAILY PRN constipation 08/07/24 09/15/24 Rx #100 caps ibuprofen 600 mg tablet 600 mg PO Q6H PRN Pain #30 tabs 08/07/24 09/15/24 Rx triamcinolone acetonide 0.1 % 1 applic topical TID #80 grams 08/10/24 09/15/24 Rx topical ointment miconazole nitrate 2 % topical 1 applic topical BID #28 grams 10/19/24 Rx cream Allergies Allergy/AdvReac Type Severity Reaction Status Date / Time adhesive tape AdvReac Intermediate Rash Verified 09/15/24 11:08
== END 2024-10-19 14:24 | disposition home or self-care (01) ==
LOC: OB LAC 14:24
PROVIDERS: PCP Nurse Practitioner Family; Visit Provider Obstetrics & Gynecology
DX: Z39.1 Encounter for care and examination of lactating mother (principal)
CPT/HCPCS: G0463

== ENCOUNTER 2024-12-28 12:45 | Outpatient (CLI) | payer OTHER, SELFPAY ==
--- NOTE | 2024-12-28 13:00 | CRLHL7_ITS ---
For Patients: As a result of the Century Cures Act, medical imaging exams and procedure reports are released immediately into your electronic medical record. You may view this report before your referring provider. If you have questions, please contact your health care provider. INDICATION: Low back pain. TECHNIQUE: Noncontrast MRI of the lumbar spine is performed in the usual fashion. No comparisons. FINDINGS: Mild lumbar levoscoliosis the overall stature, alignment and marrow signal lumbar spine is within normal limits. Conus is within normal limits. There appears to be dorsal spinal stimulator entering the dorsal spinal canal at the T12-L1 level. T12-L1, L1-2: Unremarkable. L2-3: Mild broad-based posterior disc bulge and facet arthropathy results in no significant central canal or foraminal narrowing. L2-3: No central canal or foraminal narrowing. L4-5: Mild broad-based posterior disc bulge 12th arthropathy results in no central canal or foraminal narrowing. L5-S1: Mild broad-based posterior disc bulge and facet arthropathy results in mild left and no right foraminal. No central canal narrowing. IMPRESSION: 1. Mild lumbar scoliosis. 2. Mild left L5-S1 foraminal narrowing. 3. Milder degenerative changes within the remainder of the lumbar spine as outlined above. Dictated by Gus Tena MD @ 12/28/2024 7:33:49 PM (Electronically Signed)
== END 2024-12-28 12:46 | disposition home or self-care (01) ==
PROVIDERS: PCP Nurse Practitioner Family; Visit Provider Nurse Practitioner Family
DX: M41.86 Other forms of scoliosis, lumbar region (principal); M51.27 Other intervertebral disc displacement, lumbosacral region
CPT/HCPCS: 72148

== ENCOUNTER 2025-03-08 10:45 | Outpatient (RCR) | payer OTHER, SELFPAY | END 2025-03-08 11:36 | disposition home or self-care (01) | PROVIDERS: PCP Nurse Practitioner Family; Visit Provider Family Medicine | DX: M54.50 Low back pain, unspecified (principal); Z51.89 Encounter for other specified aftercare | CPT/HCPCS: 97110; 97162 ==